=== PATIENT | female | born 2000 | race Two or more races ===

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

== ENCOUNTER 2022-12-09 20:48 | Emergency (ER) | payer OTHER, MEDICAID ==
[~2022-12-09] VITALS: Ht 170.2 cm; Wt 117.1 kg
[2022-12-09 21:27] LABS: Basophils # (auto) 0 10 ^3/uL (0-0.2); Basophils % (auto) 0.3 % (0.0-2.0); Eosinophils # (auto) 0.1 10 ^3/uL (0-0.8); Eosinophils % (auto) 0.5 % (0.0-7.0); Hematocrit 47.3 % (36.0-46.0); Hemoglobin 16.4 g/dL (12.2-16.2); Lymphocytes # (auto) 0.9 10 ^3/uL (0.4-5.4); Lymphocytes % (auto) 6.8 % (10.0-50.0); Mean Corpuscular Hemoglobin 32.3 pg (28.0-32.0); Mean Corpuscular Hgb Conc. 34.6 g/dL (32.0-36.0); Mean Corpuscular Volume 93.3 fL (80.0-100.0); Monocytes # (auto) 0.7 10 ^3/uL (0-1.3); Monocytes % (auto) 4.9 % (0.0-12.0); Neutrophils # (auto) 12.2 10 ^3/uL (1.6-8.6); Neutrophils % (auto) 87.5 % (37.0-80.0); Red Blood Cells 5.06 10^6/uL (4.0-5.20); Red Cell Distribution Width 12.4 % (11.8-14.3); White Blood Cell 13.9 10^3/uL (4.4-10.8)
[2022-12-09 21:47] LABS: Albumin 3.9 g/dL (3.4-5.0); Potassium 3.4 mmol/L (3.5-5.1)
[2022-12-09 21:48] LABS: BUN/Creatinine Ratio 7.9 (10.0-20.0); Bilirubin, Total 0.7 mg/dL (0.2-1.0); Total Protein 8.1 g/dL (6.4-8.2)
[2022-12-09] MEDS ORDERED: SODIUM CHLORIDE 0.9% 1,000 ML IV ONE (22:15)
[2022-12-09 22:22] LABS: Urine Bacteria NONE SEEN /hpf (None Seen); Urine Blood 1+ /uL (Negative); Urine Mucus FEW (None Seen); Urine Specific Gravity 1.026 (1.001-1.035); Urine WBC 1 /hpf (0 - 5)
[2022-12-09] MEDS ORDERED: cefTRIAXone 1GM/50ML D5W 50 ML IV ONE (23:00)
[2022-12-09] MEDS ORDERED: ONDANSETRON HCL 4 MG/2 ML VIAL IV ONE (23:00)
[2022-12-10] MEDS ORDERED: ZOFR4T PO (00:05)
[2022-12-10] MEDS ORDERED: METR-344 PO (00:05)
[2022-12-10 00:55] VITALS: BP 121/48
== END 2022-12-10 01:00 | disposition home or self-care (01) ==
LOC: ER 20:48
DX: K52.9 Noninfective gastroenteritis and colitis, unspecified (principal); R94.31 Abnormal electrocardiogram [ECG] [EKG]; R10.2 Pelvic and perineal pain; Z20.822 Contact with and (suspected) exposure to COVID-19; Z32.02 Encounter for pregnancy test, result negative
CPT/HCPCS: 36415; 71046; 80053; 81001; 81025; 83605; 83735; 84484; 84702; 85025; 85379; 87426; 87804; 93005; 96361; 96365; 96375; 99285; J0696; J2405; J7030